=== PATIENT | male | born 1985 | race Hispanic/Latino ===

== ENCOUNTER → 2023-05-24 | Emergency (ER) | payer SELFPAY ==
[~2023-05-24] MED LIST: FUROSEMIDE 40 MG/4 ML VIAL ONE; HEPARIN 5000 UNIT/ML 1 ML VIAL ONE; HEPARIN/D5W 25,000 UNIT/500 ML BAG IV ONE; HYDROCORTISONE SUC 100 MG INJ ONE; IPRATROPIUM BROM 0.5MG/2.5ML ONE; LEVALBUTEROL 1.25 MG/3 ML NEB ONE; NA CHLORIDE 0.9% 1,000 ML ONE; NA CHLORIDE 0.9% 100 ML ONE; NA CHLORIDE 0.9% 250 ML ONE; OCTREOTIDE 500 MCG in NA CHLORIDE 0.9% 500 ML IV SCH; OCTREOTIDE ACETATE 100 MCG/ML ONE; ONDANSETRON 4 MG/2 ML VIAL ONE; PANTOPRAZOLE 40 MG INJ ONE; PIPERACIL/TAZO 3.375 GM VIAL IV ONE; PROMETHAZINE INJ 25 MG/ML AMP ONE; VITAMIN K (ADULT) 10 MG/ML ONE
--- OUTSIDE RECORDS SUMMARY | 2023-05-24 06:24 | XMS REPORT | Continuity of Care Document ---
Author Name Unknown Address [address] [facility]. [address] [place], [place] [id number] [place] [address] thconnect Address [address] [facility] [address] [place] [address] Care Team Providers Care Second Language Tutor Name Role Phone DHAVAL CABAN Attending Clinician Unavailable Allergies, Adverse Reactions, Alerts Allergy Name Allergy Type Status Severity Reaction(s) Onset Date Inactive Date Treating Clinician Comments Source NO KNOWN ALLERGIE S Drug Class Active [facility] Encounters Start Date/Time End Date/Time Encounter Type Admission Type Attending Clinicians Care Facility Care Department Encounter ID Source 2020-04-07 14:20:00 2020-04-07 14:20:00 Outpatient R [facility] [id number] [facility] 2020-04-07 14:20:00 2020-04-07 14:20:00 Outpatient DHAVAL AMEZCUA [facility] [id number] [facility]
[2023-05-24 07:58] LABS: Absolute Lymphocytes (CBC) 0.3 K/uL (0.7-4.9); Absolute Monocytes 0.5 K/uL (0.1-1.3); Basophils % 0.1 % (0-1.3); Hematocrit 37.8 % (39.6-49.0); Hemoglobin 12.6 g/dL (13.6-17.9); Lymphocytes % 2.1 % (15.3-44.8); MCH 33.8 pg (27.0-35.0); MCHC 33.4 g/dL (32.0-36.0); MCV 101.4 fL (80-100); MPV 9.2 fL (7.6-11.3); Monocytes % 3.3 % (3.3-12.3); Neutrophils % 94.5 % (41.7-73.7); Platelets 55 thou/uL (152-406); RBC Red Blood Cell Count 3.73 M/uL (4.33-5.43); Red Cell Distribution Width 17.1 % (12.1-15.2)
[2023-05-24 08:00] LABS: PT Prothrombin Time 15.4 SECONDS (9.5-12.5); Protime INR 1.41
--- NOTE | 2023-05-24 08:06 | RAD REPORT ---
EXAM DESCRIPTION: Sallyt Single View05/24/2023 6:52 am CLINICAL HISTORY: COUGH COMPARISON: Chest Single View dated 03/26/2017; Chest Single View dated 02/05/2016; CHEST SINGLE VIEW dated 11/17/2014 TECHNIQUE: Portable AP view of the chest. FINDINGS: Interstitial prominence and patchy bilateral airspace opacities most pronounced along the mid lungs. No pneumothorax or effusion. Mild cardiomegaly. Mediastinal contours are unremarkable. IMPRESSION: Patchy bilateral opacities which may reflect pulmonary edema or multifocal pneumonia.
[2023-05-24 08:08] LABS: SARS-CoV-2 Antigen CONTROL BLUE LINE VIS/BG OK; SARS-CoV-2 Antigen Rapid Res Negative (Negative)
[2023-05-24 08:25] LABS: Albumin 2.3 g/dL (3.4-5.0); Albumin/Globulin Ratio 0.5 (1.1-1.8); Bilirubin Direct 1.4 mg/dL (0-0.2); Bilirubin Indirect, Calculated 1.5 mg/dL (0.2-0.8); Bilirubin Total 2.9 mg/dL (0.2-1.0); Globulin 4.4 g/dL (2.3-3.5); Magnesium 1.5 mg/dL (1.6-2.4); Potassium 3.1 mEq/L (3.5-5.1); Protein, Total 6.7 g/dL (6.4-8.2)
[2023-05-24 08:50] LABS: Blood Morphology Comment NOT SEEN (NOT SEEN); Platelet Estimate DECR; White Blood Cell Scan OK (OK)
[2023-05-24 08:52] LABS: Anion Gap 21.1 mEq/L (5.0-15.0)
[2023-05-24 08:53] LABS: Troponin High Sensitivity 84042.1 pg/mL (<58.9)
--- NOTE | 2023-05-24 10:46 | RAD REPORT ---
EXAM DESCRIPTION: CT - Chest Abd Pelvis Wo Con - 05/24/2023 9:54 am CLINICAL HISTORY: Abdominal distention;Chest pain;Congestion;Dyspnea COMPARISON: Chest Abd Pelvis Wo Con dated 10/23/2015; Abdomen Pelvis W Contrast dated 04/29/2016 TECHNIQUE: Thin axial CT images of the chest, abdomen, and pelvis, performed without IV contrast. Mu ltiplanar reformats were generated and reviewed. All CT scans are performed using dose optimization technique as appropriate and may include automated exposure control or mA/KV adjustment according to patient size. FINDINGS: Dependent patchy alveolar and ground-glass opacities throughout both lungs. Small bilatera l pleural effusions.No pneumothorax or pericardial effusion.No intrathoracic adenopathy. The liver is again enlarged, demonstrating progressive stigmata of cirrhosis with more progressive no dularity, patchy hypoattenuation, and segmental left lobe hypertrophy. Assessment for a hepatic focal lesion is limited on this noncontrast exam. Progressive splenomegaly, now measuring 18 cm in long ax is. Prominent portosystemic varicosities along the gastrosplenic and splenorenal regions. Gallbladder , pancreas, adrenal glands and kidneys are within normal limits. No bowel obstruction, free air, free fluid or abscess. Asymmetric edema along the left upper thigh, w ith fat stranding extending proximally along the left iliac vessels. No pathologic lymphadenopathy i n the abdomen or pelvis. No worrisome osseous finding. IMPRESSION: Findings suggestive pulmonary edema with dependent airspace opacities and small bilatera l layering effusions. Stigmata of cirrhosis with portal hypertension and splenomegaly. Asymmetric edema and fat stranding along the left iliac vessels and left upper thigh. If there is con cern for deep venous thrombosis, additional evaluation by dedicated venous duplex would provide impro hal assessment.
--- NOTE | 2023-05-24 11:00 | ER ---
Nurse's Notes [facility] Name: Feroz Mcginnis Age: 37 yrs Sex: Male : 1985 Arrival Date: 05/24/2023 Time: 06:22 Bed 8 Private MD: Diagnosis: Acute pulmonary edema;Subsequent non-ST elevation (NSTEMI) myocardial infarction;Hypoxemia Presentation: 05/23 06:25 Chief complaint: EMS states: hx of alcoholism and varices, complaining of SOB, with rv noted bleeding around the mouth. Coronavirus screen: At this time, the client does not indicate any symptoms associated with coronavirus-19. Ebola Screen: No symptoms or risks identified at this time. Initial Sepsis Screen: Does the patient meet any 2 criteria? No. Patient's initial sepsis screen is negative. Does the patient have a suspected source of infection? No. Patient's initial sepsis screen is negative. Risk Assessment: Do you want to hurt yourself or someone else? Patient reports no desire to harm self or others. Onset of symptoms was May 24, 2023. 06:25 Method Of Arrival: EMS: [facility] rv 06:25 Acuity: JEFFREY 2 rv Triage Assessment: 06:27 General: Appears comfortable, Behavior is calm, cooperative. Pain: Denies pain. Neuro: rv Level of Consciousness is awake, alert, obeys commands, Oriented to person, place, time, situation. Cardiovascular: Capillary refill < 3 seconds Patient's skin is warm and dry. Rhythm is sinus tachycardia. Respiratory: Airway is patent Respiratory effort is labored, Respiratory pattern is tachypnea. GI: Pt is actively vomiting. : No signs and/or symptoms were reported regarding the genitourinary system. Derm: No signs and/or symptoms reported regarding the dermatologic system. Historical: - Allergies: 06:27 No Known Allergies; rv - PMHx: 06:27 Alcoholism; esophageal varicies; Hypertension; psoriasis; Seizures; rv - PSHx: :27 None; rv - Immunization history:: Adult Immunizations up to date. - Social history:: Smoking status: Patient denies any tobacco usage or history of. - Family history:: not pertinent. Screenin:[facility] ED Fall Risk Assessment (Adult) History of falling in the last 3 months, rv including since admission No falls in past 3 months (0 pts) Score/Fall Risk Level 0 - 2 = Low Risk Oriented to surroundings, Maintained a safe environment, Educated pt \T\ family on fall prevention, incl call for assistance when getting out of bed, Assessed \T\ reinforced patient's understanding of fall precautions. Abuse screen: Denies threats or abuse. Denies injuries from another. Nutritional screening: No deficits noted. Tuberculosis screening: No symptoms or risk factors identified. Assessment: 07:05 Reassessment: Received report from ALANIS Cobian. ld1 07:20 General: Appears in no apparent distress. uncomfortable, Behavior is calm, cooperative, ld1 appropriate for age. Pain: Denies pain. Neuro: Level of Consciousness is awake, alert, obeys commands, Oriented to person, place, time, situation. 07:20 Cardiovascular: Capillary refill < 3 seconds Patient's skin is warm and dry. Rhythm is ld1 sinus tachycardia. Respiratory: Airway is patent Respiratory effort is even, labored. GI: Abdomen is round non-distended, Reports vomiting, blood tinged emesis. : No signs and/or symptoms were reported regarding the genitourinary system. EENT: No signs and/or symptoms were reported regarding the EENT system. Derm: No signs and/or symptoms reported regarding the dermatologic system. Musculoskeletal: No signs and/or symptoms reported regarding the musculoskeletal system. 08:00 Reassessment: Patient appears in no apparent distress at this time. No changes from ld1 previously documented assessment. Patient and/or family updated on plan of care and expected duration. Pain level reassessed. 08:50 Reassessment: Patient appears in no apparent distress at this time. No changes from ld1 previously documented assessment. Patient and/or family updated on plan of care and expected duration. Pain level reassessed. 09:59 Reassessment: Patient appears in no apparent distress at this time. No changes from ld1 previously documented assessment. Patient and/or family updated on plan of care and expected duration. Pain level reassessed. 13:40 Reassessment: Pt c/o nausea. Notified ERP. See MAR for orders. ld1 13:54 Reassessment: PTT recheck at 1730. ld1 15:10 Reassessment: Patient appears in no apparent distress at this time. No changes from ld1 previously documented assessment. Patient and/or family updated on plan of care and expected duration. Pain level reassessed. 05/24 03:23 Reassessment: Notified ALANIS Enamorado at [facility] of patient having + Blood cultures in pf1 all 4 bottles of gram stain of cocci in chains. Vital Signs: 05/23 06:27 BP 124 / 71; Pulse 121; Resp 20; Temp 98; Pulse Ox 83% ; rv 07:15 Weight 98.43 kg; ld1 07:59 BP 106 / 76; Pulse 116; Resp 20; Pulse Ox 96% on BiPAP; ld1 08:44 BP 116 / 73; Pulse 117; Resp 20; Pulse Ox 98% on BiPAP; ld1 10:11 BP 109 / 64; Pulse 118; Resp 18; Pulse Ox 93% on BiPAP; ld1 11:25 BP 106 / 70; Pulse 110; Resp 20; Pulse Ox 97% on BiPAP; ld1 13:46 BP 114 / 72; Pulse 127; Resp 20; Pulse Ox 100% on 8 lpm NC; ld1 15:10 BP 118 / 69; Pulse 126; Resp 19; Pulse Ox 93% on 6 lpm NC; ld1 ED Course: 06:24 Patient arrived in ED. kmf 06:24 Emmanuel Forman MD is Attending Physician. noris 06:25 Dustin Amador, ALANIS is Primary Nurse. rv 06:27 Triage completed. rv 06:30 Arm band placed on right wrist. rv 06:30 Patient has correct armband on for positive identification. Client placed on continuous rv cardiac and pulse oximetry monitoring. NIBP monitoring applied. groundwater monitoring technician on. 06:30 No provider procedures requiring assistance completed. rv 06:53 XRAY Chest (1 view) In Process Unspecified. EDMS 07:19 Attending Physician role handed off by Emmanuel Forman MD rn 07:19 Juarez Darling MD is Attending Physician. rn 07:45 SARS RAPID Sent. bc6 07:45 Flu Sent. bc6 07:55 Zoraida Carbajal, ALANIS is Primary Nurse. ld1 08:00 Missed attempt(s): 20 gauge in left antecubital area. ld1 08:01 Radiology exam delayed due to pt needs to be removed from BIPAP. ls3 08:05 SARS RAPID Sent. ld1 08:05 Flu Sent. ld1 09:54 CT Chest Abdomen Pelvis W/O Contrast In Process Unspecified. EDMS 10:58 Iwueke, Izuchukwu, MD is Hospitalizing Provider. rn 11:27 Extrem Venous W Compression Nba US In Process Unspecified. EDMS 11:42 initiated transfer to [facility]. bd 12:33 Inserted saline lock: 22 gauge in right antecubital area, using aseptic technique. ld1 13:46 Inserted saline lock: 22 gauge in right upper arm, using aseptic technique. ld1 13:50 pt denied at [facility], due to no icu beds at this time,per Nadine Brownlee. bd 13:51 initiated transfer to [facility], pt denied at all [facility] due to all being on bd saturation,per tyree. 13:52 initiated transfer to [facility], pt accepted in transfer to [facility] by Dr rach Casas admin approval given by Britt Lui. 15:11 Provided Education on: Need for transfer. ld1 15:11 Patient transferred, IV remains in place. ld1 Administered Medications: 06:41 CANCELLED (Duplicate Order): rocephin1 grams IV at per protocol once; Given slow IV noris push per pharmacy instructions 07:25 Drug: SandoSTATIN IV 50 mcg IV at calculated rate once Route: IV; Rate: calculated ld1 rate; Site: right antecubital; 07:28 Drug: Pantoprazole IVP 40 mg IVP once Route: IVP; Site: right antecubital; ld1 07:29 Drug: Phytonadione Sub-Q 10 mg Sub-Q once Route: Sub-Q; Site: abdomen; ld1 07:30 Drug: NS 0.9% IV 250 ml IV at bolus once Route: IV; Rate: bolus; Site: right ld1 antecubital; 07:30 Drug: Solu-CORTEF IVP 100 mg IVP once Route: IVP; Site: right antecubital; ld1 07:32 Drug: Levalbuterol Inhalation 1.25 mg Inhalation once Route: Inhalation; ld1 07:32 Drug: Ipratropium Inhalation Aerosol 0.5 mg Inhalation once Route: Inhalation; ld1 07:40 Drug: NS 0.9% IV 1000 ml IV at 100 ml/hr continuous Route: IV; Rate: 100 ml/hr; Site: ld1 right antecubital; 07:56 Drug: Piperacillin-Tazobactam IVPB 3.375 grams IVPB once over 60 mins; (mix in NS 100 ld1 mL) Route: IVPB; Infused Over: 60 mins; Site: right antecubital; 08:23 Drug: SandoSTATIN IV 25 mcg/h IV at calculated rate once Route: IV; Rate: calculated ld1 rate; Site: right antecubital; 12:00 Drug: Ondansetron IVP 4 mg IVP once; over 2 minutes Route: IVP; Site: right antecubital;ld1 13:20 Drug: Furosemide IVP 40 mg IVP once; give over 2 minutes Route: IVP; Site: right ld1 antecubital; 13:26 Drug: Heparin (OK Drip) 12 units/kg/[place] - ([place] [address] units, D5W IV 500 ml) IV at ld1 calculated rate Per protocol; Max initial rate 1000 units/hr {Co-Signature: ph (Misty Solares RN).} Route: IV; Rate: calculated rate; Site: right upper arm; 13:26 Drug: Heparin (OK-Bolus No thrombolytic) - HEParin IVP 60 units/kg IVP once; Max 5000 ld1 units {Co-Signature: ph (Misty Solares RN).} Route: IVP; Site: right upper arm; 13:44 Drug: Promethazine IVP 6.25 mg IVP once Route: IVP; Site: right upper arm; ld1 Medication: 06:30 VIS not applicable for this client. rv Outcome: 10:59 Decision to Hospitalize by Provider. rn 11:34 ER care complete, transfer ordered by MD. rn 15:11 Transferred by ground EMS ld1 15:11 Condition: unchanged 15:11 Discharge instructions given to patient, family, Instructed on discharge instructions, follow up and referral plans. Demonstrated understanding of instructions, follow-up care, 15:12 Patient left the ED. ld1 Signatures: Dispatcher [employer] EDMS Ana Ramirez Corey, MD MD cha Nieto, Roman, MD MD rn Vicente, Ronaldo, RN RN rv Siler, Lynzie ls3 Zoraida Carbajal RN RN ld1 Ira Carson RN RN pf1 Lita Perla [facility] Stephanie Kim [facility] Solares, Misty RN ph
--- NOTE | 2023-05-24 11:00 | EDPHYS ---
Physician Documentation [facility] Name: Feroz Mcginnis Age: 37 yrs Sex: Male : 1985 Arrival Date: 05/24/2023 Time: 06:22 Bed 8 Private MD: ED Physician Juarez Darling HPI: 05/23 06:45 This 37 yrs old Male presents to ER via EMS with complaints of dyspnea, noris cirrhosis and hypoxia. 06:45 The patient has shortness of breath at rest, with light activity. Onset: The noris symptoms/episode began/occurred 1 week(s) ago. Duration: The symptoms are continuous, and are steadily getting worse. The patient's shortness of breath is aggravated by coughing, light activity, supine position. increasing sob, cirrhosis , etoh abuse. Associated signs and symptoms: Pertinent positives: non-productive cough, dizziness, nausea, lower extremity edema. Severity of symptoms: At their worst the symptoms were moderate in the emergency department the symptoms are unchanged despite home interventions. The patient or guardian reports cough, that is constant, difficulty breathing. Severity of symptoms: At their worst the symptoms were moderate, in the emergency department the symptoms are unchanged. Modifying factors: The symptoms are alleviated by cool environment, the symptoms are aggravated by exertion, supine. Associated signs and symptoms: Pertinent positives: nausea, vomiting. Historical: - Allergies: 06:27 No Known Allergies; rv - PMHx: 06:27 Alcoholism; esophageal varicies; Hypertension; psoriasis; Seizures; rv - PSHx: 06:27 None; rv - Immunization history:: Adult Immunizations up to date. - Social history:: Smoking status: Patient denies any tobacco usage or history of. - Family history:: not pertinent. ROS: 06:45 Constitutional: Negative for fever, chills, and weight loss, Eyes: Negative for injury, noris pain, redness, and discharge, ENT: Negative for injury, pain, and discharge, Neck: Negative for injury, pain, and swelling, Abdomen/GI: Negative for abdominal pain, nausea, vomiting, diarrhea, and constipation, Back: Negative for injury and pain, : Negative for injury, bleeding, discharge, and swelling, MS/Extremity: Negative for injury and deformity, Neuro: Negative for headache, weakness, numbness, tingling, and seizure, Psych: Negative for depression, anxiety, suicide ideation, homicidal ideation, and hallucinations, Allergy/Immunology: Negative for hives, rash, and allergies, Endocrine: Negative for neck swelling, polydipsia, polyuria, polyphagia, and marked weight changes, Hematologic/Lymphatic: Negative for swollen nodes, abnormal bleeding, and unusual bruising, 06:45 Cardiovascular: Positive for palpitations, 06:45 Respiratory: Positive for cough, dyspnea on exertion, orthopnea, shortness of breath, wheezing, inspiratory, expiratory, 06:45 Abdomen/GI: Positive for abdominal distension, 06:45 MS/extremity: Positive for decreased range of motion, pain, swelling, tenderness, 06:45 Skin: Positive for jaundice, Exam: 06:45 Constitutional: This is a well developed, well nourished patient who is awake, alert, noris and in no acute distress. Head/Face: Normocephalic, atraumatic. ENT: Nares patent. No nasal discharge, no septal abnormalities noted. Tympanic membranes are normal and external auditory canals are clear. Oropharynx with no redness, swelling, or masses, exudates, or evidence of obstruction, uvula midline. Mucous membranes moist. Neck: Trachea midline, no thyromegaly or masses palpated, and no cervical lymphadenopathy. Supple, full range of motion without nuchal rigidity, or vertebral point tenderness. No Meningismus. Chest/axilla: Normal chest wall appearance and motion. Nontender with no deformity. No lesions are appreciated. Abdomen/GI: Soft, non-tender, with normal bowel sounds. No distension or tympany. No guarding or rebound. No evidence of tenderness throughout. Back: No spinal tenderness. No costovertebral tenderness. Full range of motion. Male : Normal genitalia with no discharge or lesions. Neuro: Awake and alert, GCS 15, oriented to person, place, time, and situation. Cranial nerves II-XII grossly intact. Motor strength 5/5 in all extremities. Sensory grossly intact. Cerebellar exam normal. Normal gait. Psych: Awake, alert, with orientation to person, place and time. Behavior, mood, and affect are within normal limits. 06:45 Eyes: Sclera: icterus, 06:45 Cardiovascular: Rate: tachycardic, actual rate is 118 bpm, Rhythm: regular, Heart sounds: normal, normal S1and S2, no S3 or S4, no murmur, no rub, no gallop, Edema: 4+ edema to level of left upper thigh, left midcalf, right upper thigh and right midcalf, JVD: is not appreciated, 06:45 ECG was reviewed by the Attending Physician. Vital Signs: 06:27 BP 124 / 71; Pulse 121; Resp 20; Temp 98; Pulse Ox 83% ; rv 07:15 Weight 98.43 kg; ld1 07:59 BP 106 / 76; Pulse 116; Resp 20; Pulse Ox 96% on BiPAP; ld1 08:44 BP 116 / 73; Pulse 117; Resp 20; Pulse Ox 98% on BiPAP; ld1 10:11 BP 109 / 64; Pulse 118; Resp 18; Pulse Ox 93% on BiPAP; ld1 11:25 BP 106 / 70; Pulse 110; Resp 20; Pulse Ox 97% on BiPAP; ld1 13:46 BP 114 / 72; Pulse 127; Resp 20; Pulse Ox 100% on 8 lpm NC; ld1 15:10 BP 118 / 69; Pulse 126; Resp 19; Pulse Ox 93% on 6 lpm NC; ld1 MDM: 06:27 Patient medically screened. noris 06:52 Differential diagnosis: Anemia asthma, Bronchitis CHF exacerbation, Chronic Obstructive noris Pulmonary Disease pneumonia, pulmonary edema, reactive airway disease, Sepsis Unstable Angina. Antibiotic administration: rocephin , zosyn. Differential Diagnosis altered mental status, sepsis, flu, Obstructed Airway Bronchitis Influenza Upper Respiratory Infection Sinusitis Pharyngitis Otitis Media. Immunization status:. Data reviewed: vital signs, nurses notes, EMS record, lab test result(s), EKG, radiologic studies, CT scan, plain films. Consideration of Admission/Observation Escalation of care including admission/observation considered. I considered the following discharge prescriptions or medication management in the emergency department Medications were administered in the Emergency Department. See MAR. Independent interpretation of the following test(s) in the Emergency Department EKG: See my EKG interpretation above. Test considered but Not performed: CT: no ct chest pe. Historians other than the Patient: EMS: ems well informed. Care significantly affected by the following chronic conditions: Hypertension, Obesity, seizures, esophageal , alcoholism, psoriasis. Counseling: I had a detailed discussion with the patient and/or guardian regarding the historical points, exam findings, and any diagnostic results supporting the discharge/admit diagnosis, lab results, radiology results, the need to transfer to another facility, for higher level of care, [facility] does not immediately have the required specialist. 07:24 ED course: Pt signed out to me by Dr. Forman, per sign out likely pneumonia, patient rn denies hematemesis or GI bleeding, reports dyspnea and swelling. Improved on bipap. . 08:12 ED course: Patient with elevated lactate. Antibiotics administered after blood cultures rn obtained. Patient initially given 250 cc bolus followed by 1000 mL of NS that was ordered at a rate of 100 mL/h but I switched it to a bolus when I arrived here. Will not get full 30 cc/kg bolus at this time due to volume overload, 3+ pitting edema in the lower extremities, and possible pulmonary edema on the chest x-ray. Has currently received just over 10 cc/kg bolus. Will reassess volume status and response.. 09:10 ED course: Patient with elevated troponin, given report of possible hemoptysis will rn hold anticoagulation at this time until further information. Repeat EKG ordered. Patient still doing well on BiPAP. Again patient denies any chest pain.. 10:54 ED course: Lactate improving. CT shows primarily pulmonary edema, will not receive rn further IV fluids at this time. Sepsis reevaluation complete. . 10:58 ED course: I personally spent 35 minutes engaged in work directly related to the rn individual patient's care. This does not include any time spent performing procedures. The patient has been deemed critically ill because of chronic cirrhosis of liver complicating clinical picture, requiring multiple tests and imaging to tease apart pulmonary edema versus infiltrate, possible cardiac involvement, requiring BiPAP for ventilation. 11:30 ED course: Patient declines admission, requests transfer due to decompensated cirrhosis rn even though Dr. Tracey was consulted by me and agrees to consult. Hospitalist service states troponin too high. No ICU bed here. Will transfer for ICU bed and higher level of care. . 11:32 ED course: Pt has not had any hemoptysis or hematemesis here, will anticoagulate with rn heparin for option of turning off. [place]eds [place] [address], and questionable DVT. . ED course: Transfer initiated to [facility].. 11:52 ED course: Pt began to have nausea, bipap mask removed, had single episode of emesis, rn non-bloody, switched to [place] oxygen for now. Still waiting on callback from [facility]. Given no blood in emesis and elevated troponin, started heparin.. 13:25 ED course: [facility] at capacity and unable to accommodate patient. [place] transfer rn attempted and they are at capacity as well. Patient accepted for transfer at [facility].. 05/23 06:26 Order name: Basic Metabolic Panel; Complete Time: 09:02 [facility] 05/23 06:26 Order name: CBC with Diff; Complete Time: 09:02 [facility] 05/23 06:26 Order name: LFT's; Complete Time: 09:02 [facility] 05/23 06:26 Order name: Magnesium; Complete Time: 09:02 [facility] 05/23 06:26 Order name: NT PRO-BNP; Complete Time: 09:02 [facility] 05/23 06:26 Order name: PT-INR; Complete Time: 08:37 [facility] 05/23 06:26 Order name: Troponin HS; Complete Time: 09:02 [facility] 05/23 06:26 Order name: Lipase; Complete Time: 09:02 [facility] 05/23 06:26 Order name: Blood Culture Adult (2) [facility] 05/23 06:26 Order name: AMMONIA; Complete Time: 08:37 [facility] 05/23 06:26 Order name: Type And Screen; Complete Time: 09:02 [facility] 05/23 06:33 Order name: ETOH Level; Complete Time: 08:37 km[facility] 05/23 06:45 Order name: Flu; Complete Time: 08:37 [facility] 05/23 06:45 Order name: SARS RAPID; Complete Time: 08:37 [facility] 05/23 06:59 Order name: Lactate w/ 2H reflex if indic.; Complete Time: 08:37 rv 05/23 08:50 Order name: CBC Smear Scan; Complete Time: 09:02 EDMS 05/23 10:14 Order name: Lactate Sepsis 2 HR Follow-up; Complete Time: 10:54 EDMS 05/23 06:26 Order name: XRAY Chest (1 view); Complete Time: 08:37 noris 05/23 06:26 Order name: CT Chest Abdomen Pelvis W/O Contrast; Complete Time: 10:54 noris 05/23 06:44 Order name: BIPAP [facility] 05/23 10:55 Order name: Extrem Venous W Compression Nba US rn 05/23 06:26 Order name: EKG; Complete Time: 06:27 [facility] 05/23 06:26 Order name: Cardiac monitoring; Complete Time: 07:19 [facility] 05/23 06:26 Order name: EKG - Nurse/Tech; Complete Time: 07:19 noris 05/23 06:26 Order name: IV Saline Lock; Complete Time: 07:19 [facility] 05/23 06:26 Order name: Labs collected and sent; Complete Time: 07:19 [facility] 05/23 06:26 Order name: O2 Per Protocol; Complete Time: 07:19 [facility] 05/23 06:26 Order name: O2 Sat Monitoring; Complete Time: 07:19 [facility] 05/23 06:26 Order name: IV Saline Lock - Large Bore; Complete Time: 07:19 [facility] 05/23 07:17 Order name: Labs - recollect needed: recollect all tubes re band pt; Complete Time: bd 07:45 EC:45 Rate is 118 beats/min. Rhythm is regular. QRS [place] is Normal. TX interval is normal. noris QRS interval is normal. QT interval is normal. No Q waves. T waves are Normal. No ST changes noted. Clinical impression: NSR w/ Non-specific ST/T Changes and Sinus tachycardia. Interpreted by me. Administered Medications: 06:41 CANCELLED (Duplicate Order): rocephin1 grams IV at per protocol once; Given slow IV noris push per pharmacy instructions 07:25 Drug: SandoSTATIN IV 50 mcg IV at calculated rate once Route: IV; Rate: calculated ld1 rate; Site: right antecubital; 07:28 Drug: Pantoprazole IVP 40 mg IVP once Route: IVP; Site: right antecubital; ld1 07:29 Drug: Phytonadione Sub-Q 10 mg Sub-Q once Route: Sub-Q; Site: abdomen; ld1 07:30 Drug: NS 0.9% IV 250 ml IV at bolus once Route: IV; Rate: bolus; Site: right ld1 antecubital; 07:30 Drug: Solu-CORTEF IVP 100 mg IVP once Route: IVP; Site: right antecubital; ld1 07:32 Drug: Levalbuterol Inhalation 1.25 mg Inhalation once Route: Inhalation; ld1 07:32 Drug: Ipratropium Inhalation Aerosol 0.5 mg Inhalation once Route: Inhalation; ld1 07:40 Drug: NS 0.9% IV 1000 ml IV at 100 ml/hr continuous Route: IV; Rate: 100 ml/hr; Site: ld1 right antecubital; 07:56 Drug: Piperacillin-Tazobactam IVPB 3.375 grams IVPB once over 60 mins; (mix in NS 100 ld1 mL) Route: IVPB; Infused Over: 60 mins; Site: right antecubital; 08:23 Drug: SandoSTATIN IV 25 mcg/h IV at calculated rate once Route: IV; Rate: calculated ld1 rate; Site: right antecubital; 12:00 Drug: Ondansetron IVP 4 mg IVP once; over 2 minutes Route: IVP; Site: right antecubital;ld1 13:20 Drug: Furosemide IVP 40 mg IVP once; give over 2 minutes Route: IVP; Site: right ld1 antecubital; 13:26 Drug: Heparin (DC Drip) 12 units/kg/hr - ([place] [address] units, D5W IV 500 ml) IV at ld1 calculated rate Per protocol; Max initial rate 1000 units/hr {Co-Signature: ph (Misty Solares RN).} Route: IV; Rate: calculated rate; Site: right upper arm; 13:26 Drug: Heparin (DC-Bolus No thrombolytic) - HEParin IVP 60 units/kg IVP once; Max 5000 ld1 units {Co-Signature: ph (Misty Solares RN).} Route: IVP; Site: right upper arm; 13:44 Drug: Promethazine IVP 6.25 mg IVP once Route: IVP; Site: right upper arm; ld1 Disposition: 10:58 Critical Care:. rn Disposition Summary: 05/24/23 11:34 Transfer Ordered Notes: Transfer Location: [facility] rn Reason: Higher level of care rn Condition: Fair(05/24/23 11:34) rn Problem: new(05/24/23 11:34) rn Symptoms: have improved(05/24/23 11:34) rn Accepting Physician: (05/24/23 15:12) ld1 Diagnosis - Acute pulmonary edema(05/24/23 11:34) rn - Subsequent non-ST elevation (NSTEMI) myocardial infarction rn - Hypoxemia(05/24/23 11:34) rn Forms: - Medication Reconciliation Form rn - SBAR form rn intake time excluding procedures: 10:58 Critical care time: Bedside Care: 35 minutes, Consultation: 5 minutes. Total time: 40 rn minutes Signatures: Dispatcher [employer] Ana Kennedy Corey, MD MD cha Nieto, Roman, MD MD rn Vicente, Ronaldo, RN RN rv Zoraida Carbajal RN RN ld1 Misty Solares RN ph Corrections: (The following items were deleted from the chart) 06:41 06:26 Rocephin IV 1 grams IV at per protocol once; Given slow IV push per pharmacy noris instructions ordered. noris 11:33 10:59 Inpatient Admission rn rn 11:33 10:59 Hien Munoz rn rn 11:33 10:59 Intensive Care Unit rn rn 11:33 10:59 Stable rn rn 11:33 10:59 new rn rn 11:33 10:59 have improved rn rn 11:33 10:59 Standard rn rn 11:33 10:59 rn rn 11:33 10:59 Acute pulmonary edema rn rn 11:33 10:59 Hypoxemia rn rn 11:33 10:59 Unspecified cirrhosis of liver rn rn 15:12 11:34 rn ld1
--- NOTE | 2023-05-24 12:38 | RAD REPORT ---
EXAM DESCRIPTION: US - Extrem Venous W Compress Nba - 05/24/2023 11:25 am CLINICAL HISTORY: Swelling COMPARISON: None. TECHNIQUE: Real-time sonographic evaluation of the bilateral lower extremity deep venous systems was performed. FINDINGS: Normal compressibility, flow augmentation, phasic flow and spontaneous flow is identified in both the left and right lower extremity deep venous systems. No intraluminal filling defects seen. IMPRESSION: No DVT in either lower extremity.
--- NOTE | 2023-05-24 14:05 | EKG ---
Test Date: 2023-05-24 Test Time: 05:37:57 Creel Operator: NATACHA MEASUREMENT RESULTS: Intervals: Rate: 118 GA: 150 QRSD: 118 QT: 348 QTc: 487 [place]: P: 67 GA: 150 QRS: 128 T: -16 INTERPRETIVE STATEMENTS: Sinus tachycardia with occasional premature ventricular complexes Left posterior fascicular block Inferior infarct, age undetermined ST & T wave abnormality, consider lateral ischemia Abnormal ECG Compared to ECG 03/26/2017 08:55:32 Ventricular premature complex(es) now present Left posterior fascicular block now present ST (T wave) deviation now present Possible ischemia now present Myocardial infarct finding still present Electronically Signed On 05-24-23 14:04:38 CDT by Bebeto Epps
[2023-05-24 17:18] VITALS: BP 118/69; TEMP 98; O2SAT 93
== END ==
LOC: ER 06:22
DX: I22.9 Subsequent ST elevation (STEMI) myocardial infarction of unspecified site (principal); I21.9 Acute myocardial infarction, unspecified; R09.02 Hypoxemia; I10 Essential (primary) hypertension; F10.20 Alcohol dependence, uncomplicated
CPT/HCPCS: 36415; 71045; 71250; 74176; 80048; 80076; 82077; 82140; 83605; 83690; 83735; 83880; 84484; 85025; 85610; 85730; 86850; 86900; 86901; 87040; 87205; 87804; 87811; 93005; 93970; 94660; C9113; J1644; J1720; J1940; J2354; J2405; J2543; J2550; J3430; J7030; J7040; J7050; J7614; J7644